=== PATIENT | female | born 1995 | race Caucasian/White ===

== ENCOUNTER 2025-02-13 15:14 | Outpatient (AMB) | payer OTHER, SELFPAY ==
--- NOTE | 2025-02-13 15:27 | MHC.OFFVIS ---
Vital Signs 02/13/25 15:28 Height 5 ft 10 in Weight 293 lb 3.437 oz BMI 42.1 BP 102/68 Blood Pressure Location Rt brachial Position Sitting Pulse 79 Pulse Source Pulse Oximeter Pulse Oximetry (%) 95 Oxygen Delivery Method Room Air Intake Visit Reasons: PCOS Intake Note: New patient present today for PCOS. Employment Law Attorney Required: No Accompanied by: Self / Same As Patient Allergies No Known Allergies Allergy (Verified 02/13/25 15:31) Medication List - Last Reconciled 02/13/25 by Marla Corcoran MD No Known Home Meds HPI Comments Details: 29-year-old female here today for initial evaluation of PCOS. Diagnosed June 2024 presents with no complaints of hirsutism, irregular menses, hair loss. Denies acne Was complaining of irregular menstruation for 1.5 years prior to diagnosis, was skipping periods by 2-3 months , sometimes 4 Supposedtly ultrasound transvaginally was normal Hirsuitism for the past 2 years, chin, neck , abdomen. 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 work has been more stressful past 3 years. No history of has history of infertility, no assisted reproductive methods. Currently sexually active with male partner , . Menarche: 16 years LMP : 02/05/25, 5 to 7 days with dysmenorrhea. No intermenstrual or postcoital bleeding Was on ocps from 2017 to 2023, was having normal menstruation Was having depression with the OCPS , tried a couple of them with her insurance Never used metformin, spironolactone She has a history of HTN, prediabetes. Does have HLD Father and paternal grandfather: CAD Father : HTN No DM in family Aunt and gradmother : PCOS Diet: 3 whole food meals a day BF : 7 30 am : harman seed pudding , or oat meal , scrambled eggs , with coffee lunch : 11 30 am: salad or some protein with vegetable Dinner 4 30 am : meat with veggie and potato fruits for snacks if any Desserts rarely Exercise: weight training 5 days a week an hour, cardio : walking an hour, running 30 mins daily Supplements fish oil 1200 mg Inositol L cartinine D2 and D3 Berberine Magnesium Medical therapies: OCP, spironolactone, metformin, incretin therapy Cosmetic therapies: waxing and shaving Physical exam General: sitting comfortably in no acute distress HEENT: normocephalic/atraumatic, Neck: supple, symmetrical, does have dorsocervical and supraclavicular fat pad Cardiac: normal heart sounds Pulm: normal breath sounds B/L, no added breath sounds Abd: not distended Extremities: no edema, no signs of myxedema PFSH Medical History (Updated 02/13/25 @ 16:35 by Marla Corcoran MD) PCOS (polycystic ovarian syndrome) HLD (hyperlipidemia) Obesity Surgical History (Updated 02/13/25 @ 15:32 by RACHEL Desai) [place] teeth extracted Social History (Updated 02/13/25 @ 15:32 by RACHEL Desai) Alcohol intake: current Alcohol intake frequency: holidays/special occasions only Patient Tobacco Use Status: Never used Tobacco Physical Exam Vital Signs: Last Vital Signs Pulse 79 02/13/25 15:28 BP 102/68 02/13/25 15:28 Pulse Ox 95 02/13/25 15:28 Oxygen Delivery Method Room Air 02/13/25 15:28 BMI result Body Mass Index 42.1 Assessment & Plan Assessment & Plan (1) PCOS (polycystic ovarian syndrome): Code(s): E28.2 - Polycystic ovarian syndrome Category: Medical Plan: 29-year-old female here today for initial evaluation of PCOS. Diagnosed in June 2024 as she has been having irregular menstruation and signs of hyperandrogenism. Apparently also had a transvaginal ultrasound which did not show cystic appearance of the ovaries, however based on not a time criteria if we exclude other diagnosis she would meet criteria for PCOS. I will check 17 hydroxyprogesterone levels, DHEA-S levels as well as testosterone levels. This is to ensure she does not have CAH or other causes of hyperandrogenism. I reviewed with the patient the implications of polycystic ovarian syndrome in terms of 1) reproductive health (increased risk of infertity, miscarriage), 2) metabolic issues (type 2 diabetes, hypertension, dyslipidemia, cardiovascular disease) and 3) hyperandrogenism (acne, hirsuitism, male pattern hair loss). We reviewed that weight loss in overweight woman can help improve these morbidities, but often woman with PCOS do need further assistance with fertility using metformin plus clomiphene or letrazole. At this time she would like to focus on weight management and while she would be interested in fertility in the future, at this time she is not focusing on that. Her major concerns today are weight management. Seeing detail below. No features of acromegaly on my exam, however given that she is maintaining an active exercise regimen with 30 minutes of cardio daily plus resistance training and maintaining a healthy diet, she continues to gain weight especially over the past 3 years, I will check for hypercortisolism with a 24 hour urine cortisol. No facial plethora, no abdominal striae, no proximal muscle weakness, no skin thinning. No history of diabetes mellitus. She does have a history of hyperlipidemia, I will also screen for diabetes though oral glucose tolerance test is ideal, we will check fasting glucose and A1c. I will also repeat a lipid panel. She is not on any statin. She has been getting periods for the past 2 months, recently started supplement inositol. This has week data regarding helping with the insulin sensitivity and regulation of periods. At this time she is not willing to try an OCP due to having severe mood symptoms and depression on past trials, we could try metformin for regulation of periods if she continues to have irregular periods in the future. I did discuss with her it is important to have bleeding at least every 2-3 months prevent endometrial hyperplasia. If she is not willing to try OCPs, could consider a daily progesterone pill or progesterone IUD. We will keep this for options in the future. At this time she is satisfied with using cosmetic techniques for dealing with hirsutism, is not interested in spironolactone. I also would not be comfortable in prescribing spironolactone in a reproductive age woman who is not on reliable contraceptive method. Her blood pressure is also in the lower side. Plan: -check A1c, fasting glucose, lipid panel, 17 hydroxyprogesterone, DHEA-S, total testosterone levels -see weight management in detail below (2) Obesity: Code(s): E66.9 - Obesity, unspecified Category: Medical Qualifiers: Obesity type: due to excess calories Obesity classification: adult class 3 (BMI >= 40) Serious obesity comorbidity presence: with serious comorbidity Body mass index: BMI 40.0-44.9 Qualified Code(s): E66.813 - Obesity, class 3; Z68.41 - Body mass index [BMI] 40.0-44.9, adult Plan: Current weight 42.1 kg per m2, 293 lb Highest weight she has ever been Used to be 104-160 lb when she was in her teens Mostly weight gain occurred over the past 3 years, feels that she has had increased stressors in her job Currently she is maintaining a very good exercise regimen with 30 minutes of exercise daily cardio, plus resistance training She is also trying to focus on eating healthier whole foods and does not eat any junk foods/fast food. We talked about calorie counting. Class 3 obesity with comorbidity of PCOS, hyperlipidemia She is not interested in weight loss surgery. I reviewed with patient the importance of weight loss as it relates to decreasing the risk of diabetes, cardiovascular disease, obstructive sleep apnea,PCOS, arthritis. We reviewed the importance of decreasing total calorie consumption, minimizing fats and carbohydrates. She is already doing well in terms of maintaining an exercise regimen and given her dietary history, she would be an excellent candidate for GLP 1 agonist. No family history of thyroid cancer, no personal history of pancreatitis. Despite maintaining a good exercise regimen and nutritional intake, continues to have weight gain, we will check for hypercortisolism with 24 hour urine cortisol levels. Does not have any features of acromegaly. Does not have any overt cushingoid features either. We will have to be careful about testing because sometimes people can have pseudo Sigrid's with the obesity. Plan: -check 24 hour urine cortisol -start Zepbound 2.5 mg weekly injection -continue current exercise regimen -continue healthy diet Plan I spent 60 minutes in reviewing the record, seeing the patient and documenting in the medical record. Orders: Orders 17 Hydroxyprogesterone Today E28.2 - Polycystic ovarian syndrome, E66.9 - Obesity, unspecified, L68.0 - Hirsutism Prolactin Today E28.2 - Polycystic ovarian syndrome, E66.9 - Obesity, unspecified, L68.0 - Hirsutism Lipid Panel Today E28.2 - Polycystic ovarian syndrome, E66.9 - Obesity, unspecified Cortisol, Free 24Hr Urine Today E28.2 - Polycystic ovarian syndrome, E66.9 - Obesity, unspecified Creatinine, 24 Hr Group Today E28.2 - Polycystic ovarian syndrome, E66.9 - Obesity, unspecified DHEA Sulfate Today E28.2 - Polycystic ovarian syndrome, E66.9 - Obesity, unspecified, L68.0 - Hirsutism Testosterone, Free/Total Today E28.2 - Polycystic ovarian syndrome, E66.9 - Obesity, unspecified, L68.0 - Hirsutism Thyroid Stimulating Hormone Today E28.2 - Polycystic ovarian syndrome, E66.9 - Obesity, unspecified, L68.0 - Hirsutism Hemoglobin A1c Today E28.2 - Polycystic ovarian syndrome, E66.9 - Obesity, unspecified Glucose Fasting Today E28.2 - Polycystic ovarian syndrome, E66.9 - Obesity, unspecified Medications: New tirzepatide (weight loss) (Zepbound) for 4 weeks 2.5 mg (0.5 mL) subcut QWEEK 2 mL 4RF E28.2 - Polycystic ovarian syndrome, E66.9 - Obesity, unspecified, E78.5 - Hyperlipidemia, unspecified tirzepatide (weight loss) (Zepbound) for 4 weeks 2.5 mg (0.5 mL) subcut QWEEK 2 mL 4RF E28.2 - Polycystic ovarian syndrome, E66.9 - Obesity, unspecified, E78.5 - Hyperlipidemia, unspecified Patient Instructions: Start Zepbound 2.5 mg weekly injection Check with your pharmacy in 2-3 days to check on the status Do fasting blood work Do 24 hr urine collection 24 hr urine collection instructions You have been asked to collect your urine for 24 hours to assess for cortisol excretion. You must choose a 24 hour period of time when you will be home. The morning of the first day, DISCARD the FIRST morning void and then note the time. You will collect every single void from then on for 24 hours. For example, if you wake up at 6am and urinate, flush down that void. You will then collect every drop of urine all day and all night through 6am the following day. You will urinate one last time at 6am for the collection. The jug of urine must be kept in the refrigerator until you bring it to the lab. Follow up in 3months Weight loss counselling ? Limit added sugars to less than 25 grams daily. There are 4.2 grams of sugar per teaspoon of sugar. A teaspoon of honey has 6 grams of sugar! Bread also can have more sugar than you think-check labels ? No soda or juices. Drink water, unsweetened iced tea or seltzer ? Limit eating out/take out or prepared meals to twice weekly at most ? Avoid red meat, hot dogs, hernández and deli meat. Substitute plant protein for animal protein as much as you can. Beans, nuts, tofu, soy milk ? Limit cheese to 1 ounce a few times weekly ? Eat high fiber foods like beans, apples and green veggies, salsa is a great snack with whole grain cracker like Wasa ? Look for the whole grain stamp when choosing bread etc. Aim for 48 grams of whole grains daily. Whole wheat does not equal whole grains! ? Don't keep tempting treats in the house. Go out once in a while for a treat. ? Don't eat anything deep fried or cream based-no sour cream Calorie counting apps such as lose it or Loop Trolley pal to aim for 500 calorie deficit plan per day Coding Level of Care Code New Pt Level 5 (06312) Diagnoses PCOS (polycystic ovarian syndrome) E28.2 Class 3 severe obesity due to excess calories with serious comorbidity and body mass index (BMI) of 40.0 to 44.9 in adult E66.813; Z68.41 Obesity type: due to excess calories Obesity classification: adult class 3 (BMI >= 40) Serious obesity comorbidity presence: with serious comorbidity Body mass index: BMI 40.0-44.9 Time Spent (min) 60
[2025-02-13 15:28] VITALS: BP 102/68; PULSE 79; O2SAT 95; BMI 42.1
--- OUTSIDE RECORDS SUMMARY | 2025-02-13 15:54 | XMS_ITS | Patient Health Record ---
Author Organization [facility] Address [address] [place] [address] Care Team Providers Care Licensed Mortgage Loan Officer Name Role Phone Walter Hermosilloen Primary Care Provider Allergies No Known Allergies Reason For Referral No Information Social History Tobacco Use: Social History Observation Description Date Details (start date - stop date) Never Smoker NA - NA Tobacco Use/Smoking Question Answer Notes Are you a: never smoker Plan Of Treatment Pending Test Test Name Order Date SARS-CoV-2 RNA PCR NAAT 02/18/2021 Insurance Providers Payer Name Payer Address Payer Phone Subscriber Number Group Number Insured Name Patient Relationship to Insured Coverage Start Date Coverage End Date [facility].[address] [place] [phone] [id number] ANAND LOCKHART Self - patient is the insured Medical (General) History Surgical History Surgery Date(Month/Year) wisdom teeth
== END 2025-02-13 16:34 | disposition home or self-care (01) ==
LOC: HO.ENCR 15:14
PROVIDERS: Visit Provider Student in an Organized Health Care Education/Training Program
DX: E28.2 Polycystic ovarian syndrome (principal); E66.813 Obesity, class 3; Z68.41 Body mass index [BMI] 40.0-44.9, adult
CPT/HCPCS: 99205